=== PATIENT | female | born 1980 | race Caucasian/White ===

== ENCOUNTER 2016-06-13 09:19 | Emergency (ER) | payer OTHER, SELFPAY ==
[2016-06-13 09:32] VITALS: BP 128/78; PULSE 84; RESP 18; TEMP 98.1; O2SAT 95
--- NOTE | 2016-06-13 09:40 | C.PDOC ---
History Of Present Illness 35 y/o F c no PMHx p/w bilateral flank pain, increased urinary frequency, and subjective fever. The pain has become more suprapubic today. She denies chills, dyspnea, nausea, vomiting, trauma. She states Advil helps and took one prior to arrival. Time Seen by Provider: 06/13/16 09:28 Chief Complaint (Nursing): Back Pain Past Medical History Vital Signs: Last Vital Signs Temp 98.1 F 06/13/16 09:23 Pulse 84 06/13/16 09:23 Resp 18 06/13/16 09:23 BP 128/78 06/13/16 09:23 Pulse Ox 95 06/13/16 09:40 Family History: States: No Known Family Hx - Social History Hx Tobacco Use: No Hx Alcohol Use: No Hx Substance Use: No - Immunization History Hx Tetanus Toxoid Vaccination: No Hx Influenza Vaccination: No Hx Pneumococcal Vaccination: No Review Of Systems Except As Marked, All Systems Reviewed And Found Negative. Cardiovascular: Negative for: Chest Pain Respiratory: Negative for: Shortness of Breath Physical Exam - Physical Exam Additional Physical Exam Comments: Suprapubic tenderness. Bilateral CVA tenderness. ED Course And Treatment O2 Sat by Pulse Oximetry: 95 Medical Decision Making Medical Decision Making: Check UA for UTI, will treat as pyelonephritis but otherwise, vital signs normal and patient appears well. Disposition - Disposition Disposition: HOME/ ROUTINE Disposition Time: 09:54 Condition: STABLE Prescriptions: Ciprofloxacin [Cipro] 500 mg PO BID #13 tab Instructions: Urinary Tract Infection in Women (ED) Forms: Work Excuse - Clinical Impression Clinical Impression: UTI (urinary tract infection)
[2016-06-13 09:46] LABS: RBC URINE 2 /hpf (0-3); URINE BILIRUBIN NEGATIVE (NEGATIVE); URINE BLOOD NEGATIVE (NEGATIVE); URINE COLOR Yellow (YELLOW); URINE GLUCOSE (UA) NORMAL (Normal); URINE KETONE NEGATIVE (NEGATIVE); URINE LEUKOCYTE ESTERASE 1+ Leu/uL (Negative); URINE PROTEIN NEGATIVE (NEGATIVE); URINE UROBILINOGEN NORMAL mg/dL (0.2-1.0); WBC URINE 12 /hpf (0-5)
== END 2016-06-13 10:06 | disposition home or self-care (01) ==
LOC: C.ER 09:19
DX: N39.0 Urinary tract infection, site not specified (principal)

== ENCOUNTER 2017-06-04 08:48 | Emergency (ER) | payer OTHER ==
[2017-06-04 09:17] VITALS: O2SAT 100
[2017-06-04] MEDS ORDERED: Sodium Chloride 0.9% 1,000 ML IV ONE (09:24)
--- NOTE | 2017-06-04 09:25 | C.PDOC ---
History Of Present Illness 36 y/o female presents to the ER complaining of bilateral flank pain which has been present since yesterday. Patient also admits to dysuria. She denies fever , nausea, vomiting, diarrhea, chest pain, SOB. Time Seen by Provider: 06/04/17 08:51 Chief Complaint (Nursing): Abdominal Pain History Per: Patient History/Exam Limitations: no limitations Onset/Duration Of Symptoms: Days Current Symptoms Are (Timing): Still Present Severity: Moderate Associated Symptoms: Urinary Symptoms. denies: Fever, Chills, Nausea, Vomiting , Diarrhea Past Medical History Reviewed: Historical Data, Nursing Documentation, Vital Signs Vital Signs: Last Vital Signs Temp 98.5 F 06/04/17 10:28 Pulse 86 06/04/17 10:28 Resp 18 06/04/17 10:28 BP 130/78 06/04/17 10:28 Pulse Ox 100 06/04/17 11:39 - Medical History PMH: No Chronic Diseases Surgical History: No Surg Hx Family History: States: No Known Family Hx - Social History Hx Tobacco Use: No Hx Alcohol Use: No Hx Substance Use: No - Immunization History Hx Tetanus Toxoid Vaccination: No Hx Influenza Vaccination: No Hx Pneumococcal Vaccination: No Review Of Systems Except As Marked, All Systems Reviewed And Found Negative. Constitutional: Negative for: Fever, Chills Cardiovascular: Negative for: Chest Pain Respiratory: Negative for: Shortness of Breath Gastrointestinal: Positive for: Abdominal Pain. Negative for: Nausea, Vomiting , Diarrhea Genitourinary: Positive for: Dysuria Skin: Negative for: Rash Physical Exam - Physical Exam Appears: Well, Non-toxic, No Acute Distress Skin: Normal Color, Warm Head: Normacephalic Eye(s): bilateral: Normal Inspection Oral Mucosa: Moist Neck: Supple Cardiovascular: Rhythm Regular Respiratory: Normal Breath Sounds, No Rales, No Rhonchi, No Wheezing Gastrointestinal/Abdominal: Normal Exam, Bowel Sounds, Soft, No Tenderness, Rebound Back: No CVA Tenderness Neurological/Psych: Oriented x3 ED Course And Treatment - Laboratory Results Result Diagrams: 06/04/17 09:29 06/04/17 09:29 O2 Sat by Pulse Oximetry: 100 (RA) Pulse Ox Interpretation: Normal Progress Note: Blood, UA, Upreg ordered and reviewed. Patient given IV NS bolus , IV toradol. On reassessment, patient is resting comfortably, in no pain/ distress. On exam, abdomen is soft and nontender. UA shows UTI, PO Ciprofloxacin given. Patient given Rxs for Ciprofloxacin and Naprosyn. She was instructed to follow up with PMD/clinic in 1-2 days, and understands she should return to ED if symptoms worsen. Reassessment Condition: Improved Disposition Counseled Patient/Family Regarding: Studies Performed, Diagnosis, Need For Followup, Rx Given - Disposition Referrals: [facility] [Outside] Disposition: HOME/ ROUTINE Disposition Time: 10:30 Condition: STABLE Prescriptions: Ciprofloxacin [Cipro] 1 tab PO BID #14 tab Naproxen 375 mg PO BID PRN #20 tablet PRN Reason: pain Instructions: Urinary Tract Infections in Adults Forms: [facility] (Luxembourgish) Print Language: ITALIAN - Clinical Impression Clinical Impression: UTI (urinary tract infection) - Scribe Statement The provider has reviewed the documentation as recorded by the Phyllis Montgomery Provider Attestation: All medical record entries made by the Tomeribe were at my direction and personally dictated by me. I have reviewed the chart and agree that the record accurately reflects my personal performance of the history, physical exam, medical decision making, and the department course for this patient. I have also personally directed, reviewed, and agree with the discharge instructions and disposition.
[2017-06-04 09:27] LABS: SQUAMOUS EPITHIAL 9 /hpf (0-5); URINE BACTERIA RARE (<OCC); URINE BILIRUBIN NEGATIVE (NEGATIVE); URINE BLOOD 1+ (NEGATIVE); URINE CLARITY Hazy (Clear); URINE COLOR Yellow (YELLOW); URINE GLUCOSE (UA) NORMAL (Normal); URINE LEUKOCYTE ESTERASE 2+ Leu/uL (Negative); URINE PROTEIN NEGATIVE (NEGATIVE); URINE UROBILINOGEN NORMAL mg/dL (0.2-1.0)
[2017-06-04 09:32] LABS: BASO # 0.1 K/uL (0.0-0.2); BASO % 0.9 % (0.0-2.0); EOS # 0.1 K/uL (0.0-0.7); EOS % 1.1 % (0.0-4.0); HEMOGLOBIN 13.3 g/dL (11.0-16.0); LYMPH # 1.7 K/uL (1.0-4.3); LYMPH % 18.8 % (20.0-40.0); MEAN CELL VOLUME 75.6 fL (81.0-99.0); MEAN CORPUSCULAR HEMOGLOBIN 24.9 pg (27.0-31.0); MEAN CORPUSCULAR HGB CONC 32.9 g/dL (33.0-37.0); MEAN PLATELET VOLUME 7.6 fL (7.2-11.7); MONO # 0.6 K/uL (0.0-0.8); MONO % 6.2 % (0.0-10.0); NEUT # 6.7 K/uL (1.8-7.0); RBC 5.33 Mil/uL (3.80-5.20); RED CELL DISTRIBUTION WIDTH 14.8 % (11.5-14.5); WHITE BLOOD COUNT 9.1 K/uL (4.8-10.8)
[2017-06-04] MEDS ORDERED: Sodium Chloride 0.9% 1,000 ML ONE (09:32)
[2017-06-04 09:44] LABS: ALB/GLOB RATIO 1.1 (1.0-2.1); ALBUMIN 3.7 g/dL (3.5-5.0); ALT/SGPT 9 U/L (9-52); AST/SGOT 15 U/L (14-36); BLOOD UREA NITROGEN 9 mg/dL (7-17); CALCIUM 8.4 mg/dl (8.6-10.4); GFR AFRICAN-AMERICAN > 60; GFR NON-AFRICAN AMERICAN > 60; LIPASE 48 U/L (23-300)
[2017-06-04 10:28] VITALS: BP 130/78; PULSE 86; RESP 18; TEMP 98.5
== END 2017-06-04 10:40 | disposition home or self-care (01) ==
LOC: C.ER 08:48
DX: N39.0 Urinary tract infection, site not specified (principal)
CPT/HCPCS: 80053; 81001; 83690; 84703; 85025; 96361; 96374; 99285; J1885; J7040

== ENCOUNTER 2017-06-06 14:35 | Emergency (ER) | payer SELFPAY ==
[2017-06-06 14:43] VITALS: PULSE 93; RESP 20
[2017-06-06] MEDS ORDERED: Sodium Chloride 0.9% 1,000 ML IV ONE (15:04)
[2017-06-06] MEDS ORDERED: Sodium Chloride 0.9% 1,000 ML ONE (15:11)
--- NOTE | 2017-06-06 15:13 | C.PDOC ---
History Of Present Illness 36yo female, presents to ED with complaints of colicky abdominal pain for the past 3 days, associated with scant bowel movements. She states the pain is mostly epigastric and now radiating to her bilateral flanks. She did not have any bowel movements today and had an episode of vomiting earlier today. She has been taking Motrin 400mg every 2-3 hours with no relief of symptoms. She has no other medical complaints. Time Seen by Provider: 06/06/17 14:46 Chief Complaint (Nursing): Female Genitourinary History Per: Patient History/Exam Limitations: no limitations Onset/Duration Of Symptoms: Days Current Symptoms Are (Timing): Still Present Location Of Pain/Discomfort: Epigastric Quality Of Discomfort: "Pain" Past Medical History Reviewed: Historical Data, Nursing Documentation, Vital Signs Vital Signs: Last Vital Signs Temp 99.5 F 06/06/17 17:43 Pulse 93 H 06/06/17 17:43 Resp 20 06/06/17 17:43 BP 134/90 06/06/17 17:43 Pulse Ox 100 06/06/17 17:43 - Medical History PMH: No Chronic Diseases Surgical History: No Surg Hx Family History: States: No Known Family Hx - Social History Hx Tobacco Use: No Hx Alcohol Use: No Hx Substance Use: No - Immunization History Hx Tetanus Toxoid Vaccination: No Hx Influenza Vaccination: Yes Hx Pneumococcal Vaccination: No Review Of Systems Except As Marked, All Systems Reviewed And Found Negative. Constitutional: Negative for: Fever, Chills Gastrointestinal: Positive for: Vomiting, Abdominal Pain Physical Exam - Physical Exam Appears: Non-toxic Skin: Normal Color Head: Normacephalic Eye(s): bilateral: Normal Inspection Neck: Normal ROM, Supple Chest: Symmetrical Cardiovascular: Rhythm Regular Respiratory: Normal Breath Sounds Gastrointestinal/Abdominal: Soft, No Tenderness, Other (obese abdomen; dull to percussion; (-) Egan's sign, McBurney's point tenderness ) Extremity: Normal ROM Neurological/Psych: Oriented x3, Normal Speech, Normal Cognition Gait: Steady ED Course And Treatment - Laboratory Results Result Diagrams: 06/06/17 15:17 06/06/17 15:17 Lab Interpretation: Normal (UA neg.) Urine POC: Negative O2 Sat by Pulse Oximetry: 98 (RA) Pulse Ox Interpretation: Normal - Radiology CXR: Interpreted by Mo CXR Interpretation: Yes: No Acute Disease - Other Rad abd x 2 X-Ray: Interpreted by Me (+FOS) Reevaluation Time: 17:40 Reassessment Condition: Improved Medical Decision Making Medical Decision Making: Plan: -- Labs -- XR Abdomen obstructive series -- Pepcid 20 mg IVP -- IV Fluids Previous records reviewed: Patient was evaluated in this ER two days ago for similar complaints, and had a normal evaluation. Was discharged home with motrin but her symptoms have not improved. November 2014: Beto had a CT abdomen and pelvis done which was negative. US Pelvic done which was also negative. October 2014: CT angio of right neck due to pain and paresthesia without neurological symptoms. Normal findings. 1730: NAD now 1741 CT Abdomen IMPRESSION: Status post cholecystectomy. Borderline hepatomegaly with minor fatty hepatic infiltration. There does appear to be a few scattered colonic diverticula along the sigmoid colon however no radiographic evidence of acute diverticulitis. No evidence of nephrolithiasis or hydronephrosis. XR Abdomen IMPRESSION: Unremarkable radiographs of chest and abdomen. No evidence of mechanical bowel obstruction. . Changes of prior cholecystectomy Disposition Doctor Will See Patient In The: Office Counseled Patient/Family Regarding: Studies Performed, Diagnosis - Disposition Referrals: [facility] [Outside] [facility] [Outside] Disposition: HOME/ ROUTINE Disposition Time: 17:40 Condition: GOOD Additional Instructions: drink a bottle of Mag Citrate (laxative) now and re-evaluate your abdominal discomfort after using the batrhoom 2-3 times Repeat as needed for satisfactory bowel movements. diet and exercise changes: eat 7 fresh fruits and vegetables per day drink much more water avoid rice/bread power walk 45 minutes/day- 5 days/week Occasional laxatives (as above) as needed Follow-up in our outpatient Family Practice Clinic Diverticulosis: Directly related to poor diet habits chronic diverticulosis may become diverticulitis with increased risk of significant bowel damage diet changes as above Fatty Liver: Directly related to obesity and diet May lead to significant liver diseases diet and exercise changes as above. Prescriptions: Magnesium Citrate [Citrate of Magnesia] 300 ml PO ONCE PRN #1 solution PRN Reason: Constipation Instructions: Constipation in Adults, Diverticulosis (DC), Nonalcoholic Fatty Liver Disease (DC) Forms: [facility] [facility] (Armenian) - Clinical Impression Clinical Impression: Colicky periumbilical abdominal pain - Scribe Statement The provider has reviewed the documentation as recorded by the Scribe (Bozena Adame) Provider Attestation: All medical record entries made by the Scribe were at my direction and personally dictated by me. I have reviewed the chart and agree that the record accurately reflects my personal performance of the history, physical exam, medical decision making, and the department course for this patient. I have also personally directed, reviewed, and agree with the discharge instructions and disposition.
[2017-06-06 15:24] LABS: BASO # 0.1 K/uL (0.0-0.2); BASO % 0.5 % (0.0-2.0); EOS # 0.1 K/uL (0.0-0.7); EOS % 0.9 % (0.0-4.0); HEMOGLOBIN 12.8 g/dL (11.0-16.0); LYMPH # 1.8 K/uL (1.0-4.3); LYMPH % 15.8 % (20.0-40.0); MEAN CELL VOLUME 76.1 fL (81.0-99.0); MEAN CORPUSCULAR HEMOGLOBIN 24.9 pg (27.0-31.0); MEAN CORPUSCULAR HGB CONC 32.7 g/dL (33.0-37.0); MEAN PLATELET VOLUME 7.7 fL (7.2-11.7); MONO # 0.6 K/uL (0.0-0.8); MONO % 5.5 % (0.0-10.0); NEUT # 8.6 K/uL (1.8-7.0); NEUT % 77.3 % (50.0-75.0); RBC 5.13 Mil/uL (3.80-5.20); RED CELL DISTRIBUTION WIDTH 14.9 % (11.5-14.5); WHITE BLOOD COUNT 11.1 K/uL (4.8-10.8)
[2017-06-06 15:38] LABS: SQUAMOUS EPITHIAL 7 /hpf (0-5); URINE BACTERIA RARE (<OCC); URINE BILIRUBIN NEGATIVE (NEGATIVE); URINE BLOOD 1+ (NEGATIVE); URINE CLARITY Hazy (Clear); URINE COLOR Yellow (YELLOW); URINE GLUCOSE (UA) NORMAL (Normal); URINE LEUKOCYTE ESTERASE 2+ Leu/uL (Negative); URINE PROTEIN NEGATIVE (NEGATIVE); URINE UROBILINOGEN NORMAL mg/dL (0.2-1.0)
[2017-06-06 15:39] LABS: ALBUMIN 3.8 g/dL (3.5-5.0); ALT/SGPT 17 U/L (9-52); AST/SGOT 17 U/L (14-36); BLOOD UREA NITROGEN 7 mg/dL (7-17); CALCIUM 8.7 mg/dl (8.6-10.4); GFR AFRICAN-AMERICAN > 60; GFR NON-AFRICAN AMERICAN > 60; HCG,QUALITATIVE URINE NEGATIVE (NEGATIVE); LIPASE 36 U/L (23-300)
[2017-06-06 15:51] LABS: BARBITURATES, UR NEGATIVE (NEGATIVE); BENZODIAZEPINES, UR NEGATIVE (NEGATIVE); OPIATES, UR NEGATIVE (NEGATIVE); PHENCYCLIDINE, UR NEGATIVE (NEGATIVE)
[2017-06-06] MEDS ORDERED: Iohexol 350mg/ml 100 ML ONE (16:25)
--- NOTE | 2017-06-06 17:25 | CT ---
PROCEDURE: CT scan abdomen pelvis dated 06/06/2017 HISTORY: Epigastric to b/l flanks x 3 days COMPARISON: Comparison made with prior study 11/24/2014. TECHNIQUE: Contiguous helical/ transaxial images of the abdomen and pelvis. Oral contrast was administered. No IV contrast given. Coronal and Sagittal reformats generated. Radiation dose: Total exam DLP = This CT exam was performed using one or more of the following dose reduction techniques: Automated exposure control, adjustment of the mA and/or kV according to patient size, and/or use of iterative reconstruction technique. FINDINGS: LOWER THORAX: Heart size within range of normal. No significant pericardial effusion. Lung bases clear. No evidence of effusion or basilar pneumothorax. Tiny hiatal hernia. . LIVER: Liver is upper limits of normal/borderline enlarged measuring just over 18 cm in CC dimension. There appears to be some very minor fatty hepatic infiltration. No obvious hepatic mass collection or calcification. Portal and splenic veins are opacified. GALLBLADDER AND BILE DUCTS: Status post cholecystectomy with minimal dilatation of the common bile duct. PANCREAS: The pancreas is atrophic and fatty replaced. No obvious pancreatic mass collection or calcification. The the SPLEEN: Exhibits normal size and attenuation pattern without mass collection or calcification. ADRENALS: No adrenal lesions. KIDNEYS AND URETERS: Kidneys demonstrated symmetric nephrograms. No evidence of nephrolithiasis or hydronephrosis. No obvious renal masses or collections. BLADDER: Urinary bladder is physiologically distended. No evidence of intraluminal urinary bladder calculi. REPRODUCTIVE: Uterus unremarkable. APPENDIX: Normal-appearing appendix best seen axial image [id number] 127. No periappendiceal inflammatory changes. BOWEL: Evaluation of the bowel is limited due to the lack of oral contrast material. Stomach is decompressed which presumably accounts for thick-walled appearance. Visualized loops of small bowel exhibit normal contour and caliber. No evidence of acute mechanical small bowel obstruction. Stool and air seen throughout the large bowel. There does appear to be a few scattered colonic diverticula along the sigmoid colon however no radiographic evidence of acute diverticulitis. PERITONEUM: Unremarkable. No fluid collection. No free air. LYMPH NODES: Unremarkable. No enlarged lymph nodes. VASCULATURE: Unremarkable. No aortic aneurysm. BONES: Minor multilevel degenerative spondylosis of the thoracic and lumbar spine. . OTHER FINDINGS: None. IMPRESSION: Status post cholecystectomy. Borderline hepatomegaly with minor fatty hepatic infiltration. There does appear to be a few scattered colonic diverticula along the sigmoid colon however no radiographic evidence of acute diverticulitis. No evidence of nephrolithiasis or hydronephrosis. The
--- NOTE | 2017-06-06 17:26 | RAD ---
PROCEDURE: Radiographs of the chest and abdomen (obstructive series) HISTORY: Abdominal pain COMPARISON: No prior. TECHNIQUE: AP radiograph of the chest, with upright and supine radiographs of the abdomen. FINDINGS: CHEST: Lungs: Clear. Cardiovascular: Normal size heart. No pulmonary vascular congestion. Pleura: No pleural fluid. No pneumothorax. Other findings: None. ABDOMEN AND PELVIS: Bowel: Unremarkable bowel gas pattern. No evidence of mechanical obstruction. Free air: None. Bones: Unremarkable. Other findings: Metallic clips right upper quadrant consistent prior cholecystectomy. IMPRESSION: Unremarkable radiographs of chest and abdomen. No evidence of mechanical bowel obstruction. . Changes of prior cholecystectomy
[2017-06-06 17:44] VITALS: BP 134/90; TEMP 99.5
[2017-06-07 00:05] VITALS: O2SAT 98
== END 2017-06-06 18:04 | disposition home or self-care (01) ==
LOC: C.ER 14:35
DX: R10.33 Periumbilical pain (principal)
CPT/HCPCS: 74022; 74177; 80053; 81001; 83690; 84703; 85025; 96374; 99284; G0480; J7040; Q9967